=== PATIENT | male | born 1960 | race Native Hawaiian/Other Pacific Islander ===

== ENCOUNTER 2018-04-10 00:21 | Emergency (ER) | payer OTHER ==
[2018-04-10 00:22] VITALS: BMI 35.3
[2018-04-10 00:49] VITALS: TEMP 98
[2018-04-10] MEDS ORDERED: Epinephrine /Lidocaine HCL 1:100,000/2% 30 ml INJ ONE (00:52)
--- NOTE | 2018-04-10 00:57 | C.PDOC ---
History Of Present Illness 57 year old male with a Hx of HTN and diabetes presents to the ER with a complaint of redness to swelling to the abdomen for 2 days. PT notes he had a bump there for 5+ years, two days ago he tried to poke it in attempt to drain it and the area become swollen and red. Denies fever or chills. No change in glucose. Time Seen by Provider: 04/10/18 00:28 Chief Complaint (Nursing): Abnormal Skin Integrity History Per: Patient History/Exam Limitations: no limitations Onset/Duration Of Symptoms: Days Current Symptoms Are (Timing): Still Present Location Of Injury: Right: Abdomen Quality Of Symptoms: Painful, Other (Red) Recent travel outside of the [place]: No Past Medical History Reviewed: Historical Data, Nursing Documentation, Vital Signs Vital Signs: Last Vital Signs Temp 98 F 04/10/18 02:10 Pulse 81 04/10/18 02:10 Resp 14 04/10/18 02:10 BP 140/90 04/10/18 02:10 Pulse Ox 98 04/10/18 02:49 - Medical History PMH: Diabetes, HTN Surgical History: No Surg Hx Family History: States: Unknown Family Hx - Social History Hx Alcohol Use: No Hx Substance Use: No Review Of Systems Constitutional: Negative for: Fever, Chills Skin: Positive for: Other (Painful bump) Physical Exam - Physical Exam Appears: Well, Non-toxic, No Acute Distress Skin: Warm, Dry Head: Atraumatic, Normacephalic Eye(s): bilateral: Normal Inspection, EOMI Nose: Normal Oral Mucosa: Moist Neck: Normal ROM, Supple Chest: Symmetrical, No Tenderness Cardiovascular: Rhythm Regular Respiratory: Normal Breath Sounds, No Rales, No Rhonchi, No Wheezing Gastrointestinal/Abdominal: Soft, No Tenderness, Other (3cm area of erythema and induration with central scabbing to right abdomen, no fluctuance.) Neurological/Psych: Oriented x3, Normal Speech ED Course And Treatment O2 Sat by Pulse Oximetry: 98 (Room air) Pulse Ox Interpretation: Normal Progress Note: PT reports he did not take his lisinopril today. Denies headache , chest pain, dizziness, or sob. I&D preformed with no drainage. Patient started on antibiotics, area of erythema was circled, he was advised to apply warm compresses and follow up for wound check in 2 days. - Incision & Drainage Of Abscess Anesthesia: Lidocaine 1% Prep Used: Sterile Water, Betadine Procedure: Incised W/Scalpel Blade#: (11) Disposition - Disposition Disposition: HOME/ ROUTINE Disposition Time: 01:51 Condition: STABLE Additional Instructions: Warm compresses. Wound check in 2 days. Check your sugar regularly. Return to ER if symptoms persist or worsen. Prescriptions: Cephalexin [cephalexin] 500 mg PO BID 7 Days cap Sulfamethoxazole/Trimethoprim [Bactrim DS 800 mg-160 mg] 1 tab PO BID #14 tab Instructions: Cellulitis (Skin Infection), Adult (DC) Forms: [facility] (Polish) - Clinical Impression Clinical Impression: Cellulitis - PA / [employer]ER / Resident Statement MD/DO has reviewed & agrees with the documentation as recorded. - Scribe Statement The provider has reviewed the documentation as recorded by the Scribe Norm Hernández All medical record entries made by the Scribe were at my direction and personally dictated by me. I have reviewed the chart and agree that the record accurately reflects my personal performance of the history, physical exam, medical decision making, and the department course for this patient. I have also personally directed, reviewed, and agree with the discharge instructions and disposition.
[2018-04-10] MEDS ORDERED: Tmp-Smz 800 mg-160 mg DS Tab PO SCH (01:00)
[2018-04-10] MEDS ORDERED: Tmp-Smz 800 mg-160 mg DS Tab ONE (01:15)
[2018-04-10] MEDS ORDERED: Bacitracin 500 Units/gm Oint Foilpak UD ONE (01:48)
[2018-04-10] MEDS ORDERED: Bacitracin 500 Units/gm Oint Foilpak UD TOP ONE (01:50)
[2018-04-10 02:11] VITALS: BP 140/90; PULSE 81; RESP 14
[2018-04-10 02:49] VITALS: O2SAT 98
== END 2018-04-10 02:10 | disposition home or self-care (01) ==
LOC: C.ER 00:21
DX: L03.311 Cellulitis of abdominal wall (principal); E11.9 Type 2 diabetes mellitus without complications